=== PATIENT | female | born 1965 | race Two or more races ===

== ENCOUNTER 2023-09-23 19:18 | Emergency (ER) | payer BC ==
[~2023-09-23] VITALS: Ht 167.6 cm; Wt 74.8 kg
[~2023-09-23 19:18] MED LIST: AMOX500C2 PO; IBUP200C5 PO
[2023-09-23 21:18] VITALS: TEMP 98.6
[2023-09-23 22:28] VITALS: BP 131/78; O2SAT 99
[2023-09-23] MEDS ORDERED: IBUPROFEN 400 MG TABLET PO ONE (22:30)
== END 2023-09-23 22:29 | disposition home or self-care (01) ==
LOC: ER 19:32
DX: S63.592A Other specified sprain of left wrist, initial encounter (principal); Z87.442 Personal history of urinary calculi; Z86.73 Personal history of transient ischemic attack (TIA), and cerebral infarction without residual deficits; W01.0XXA Fall on same level from slipping, tripping and stumbling without subsequent striking against object, initial encounter; Y93.89 Activity, other specified; Y92.89 Other specified places as the place of occurrence of the external cause; Y99.8 Other external cause status
CPT/HCPCS: 73110